=== PATIENT | female | born 1945 | race Caucasian/White ===

== ENCOUNTER → 2020-01-08 | Outpatient (CLI) | payer OTHER ==
--- NOTE | 2020-01-14 08:47 | SLEEPCENT ---
DATE: 01/08/2020 ORDERED BY: JOEL Meza Nocturnal polysomnography was performed for evaluation of sleep physiology in this patient with a history of excessive somnolence and nonrestorative sleep. Eight hours and 10 minutes of data were reviewed. There were 422 minutes of sleep identified. The sleep latency was normal at 35 minutes. REM latency was short at 60 minutes. Sleep architecture was good with 4 REM cycles. Overall sleep efficiency was 87.2%. The electrocardiogram showed a sinus rhythm with an average heart rate of 50 beats per minute. EEG showed fairly normal waveforms for wake and sleep. There were 147 respiratory events identified of 10 seconds in duration or greater for an apnea-hypopnea index of 20.9. The events were primarily obstructive though 77 mixed and central apneas were also seen. Respiratory events were not exclusive to sleep stage nor body posture. Arousals from respiratory events occurred 1.5 times per hour and oxygen desaturations were seen below 90%. 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 Apnea- hypopnea index of 20.9. RECOMMENDATION: The patient should be encouraged to return to [facility]. Given the occurrence of central events during the diagnostic night, use of a bilevel device and backup rate may be necessary. In the interim alcohol and sedative avoidance should be practiced and caution exercised during the operation of motor vehicles. GROAND
== END ==
LOC: M SLEEP 20:00
PROVIDERS: ATTEND Nurse Practitioner Family
DX: G47.33 Obstructive sleep apnea (adult) (pediatric) (principal)

== ENCOUNTER → 2020-04-30 | Outpatient (CLI) | payer OTHER ==
--- NOTE | 2020-05-07 15:00 | SLEEPCENT ---
NOCTURNAL POLYSOMNOGRAPHY CPAP TITRATION DATE: 04/30/2020 ORDERED BY: MAXIMILIANO Meza Nocturnal polysomnography was performed for the titration of pressure therapy in this patient with obstructive sleep apnea syndrome with apnea-hypopnea index of 20.9. For testing a [employer]Med Quattro full face mask of small size was used, 4 cm of water pressure were applied to the circuit, and the lights were extinguished. 7 hours and 44 minutes of data were reviewed. There were 413 minutes of sleep identified. Sleep latency was short at 19.5 minutes. REM latency was short at 58.5 minutes. Sleep architecture was good with 4 REM cycles noted. Overall sleep efficiency was 98%. The electrocardiogram showed what appeared to be atrial fibrillation with a controlled ventricular response rate of 55 beats per minute. EEG showed normal waveforms for wake and sleep. Respiratory events were best palliated with CPAP at a pressure of +8 and remaining measures of sleep physiology were normal. IMPRESSION: Obstructive sleep apnea syndrome (G47.33). RECOMMENDATION: Nightly use of pressure therapy 8 cm of water.
== END ==
LOC: M SLEEP 20:00
PROVIDERS: ATTEND Nurse Practitioner Family
DX: G47.33 Obstructive sleep apnea (adult) (pediatric) (principal)